=== PATIENT | male | born 1940 | race Caucasian/White ===

== ENCOUNTER 2018-05-02 11:01 | Emergency (ER) | payer MEDICARE, OTHER ==
[~2018-05-02] VITALS: Ht 170.2 cm; Wt 92.7 kg
[2018-05-02 11:05] VITALS: Ht 170.2 cm; Wt 92.7 kg
[2018-05-02 12:45] VITALS: BP 125/65
== END 2018-05-02 12:45 | disposition home or self-care (01) ==
LOC: D.ER 11:01
DX: L02.212 Cutaneous abscess of back [any part, except buttock and flank] (principal); E11.9 Type 2 diabetes mellitus without complications; I10 Essential (primary) hypertension